=== PATIENT | female | born 1965 | race African-American/Black ===

== ENCOUNTER 2020-03-19 10:06 | Emergency (ER) | payer OTHER ==
[2020-03-19] MEDS ORDERED: ONDANSETRON 4 MG/2 ML VIAL ONE (10:24)
[2020-03-19] MEDS ORDERED: MORPHINE 4 MG/ML SYR ONE (10:24)
--- NOTE | 2020-03-19 10:56 | RAD REPORT ---
EXAM DESCRIPTION: RAD - Forearm Left - 03/19/2020 10:30 am CLINICAL HISTORY: Left forearm pain status post injury FINDINGS: A comminuted fracture involves the distal radius with the marked displacement of fracture fragments and angulation present at the fracture site. Equivocal fracture of the distal ulna
[2020-03-19] MEDS ORDERED: MIDAZOLAM HCL 2 MG/2 ML INJ ONE (11:07)
[2020-03-19] MEDS ORDERED: NA CHLORIDE 0.9% 1,000 ML ONE (11:07)
[2020-03-19] MEDS ORDERED: ETOMIDATE 20 MG/10 ML VIAL IV ONE (11:07)
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
--- NOTE | 2020-03-19 12:16 | RAD REPORT ---
EXAM DESCRIPTION: RAD - Wrist Left 3 View - 03/19/2020 11:52 am CLINICAL HISTORY: Left wrist pain status post injury FINDINGS: Comminuted impacted markedly displaced intra-articular fracture distal radius with angula tion present at fracture site Avulsion fracture ulnar styloid process No dislocation
--- NOTE | 2020-03-19 12:56 | RAD REPORT ---
EXAM DESCRIPTION: RAD - Wrist Left 2 View - 03/19/2020 12:42 pm CLINICAL HISTORY: Radial fracture FINDINGS: A splint immobilizes the previously described fractures involving distal radius and ulna i n good alignment
[2020-03-19 13:35] VITALS: TEMP 97.9
[2020-03-19 13:43] VITALS: BP 141/91; O2SAT 98
== END 2020-03-19 13:08 | disposition home or self-care (01) ==
LOC: ER 10:06
PROC: 0PSJXZZ Reposition Left Radius, External Approach (ICD-10-PCS; principal; 2020-03-19)
DX: S52.501A Unspecified fracture of the lower end of right radius, initial encounter for closed fracture (principal); V28.4XXA Motorcycle driver injured in noncollision transport accident in traffic accident, initial encounter; Z88.2 Allergy status to sulfonamides; E11.9 Type 2 diabetes mellitus without complications; Z96.41 Presence of insulin pump (external) (internal); Z79.4 Long term (current) use of insulin
CPT/HCPCS: 96361; 73090; 73110; 73100; 96375; 96374; 99285; 25605; J2250; J7030; J2405